=== PATIENT | male | born 1990 | race Caucasian/White ===

== ENCOUNTER 2024-11-11 16:11 | Inpatient (IN) | payer OTHER, SELFPAY ==
[2024-11-11] VITALS (10 sets, daily range): BP systolic 119–147; BP diastolic 69–91; BMI 29.4; BMI 29.6
--- NOTE | 2024-11-11 08:26 | ED.GENMED ---
History of Present Illness
General
Chief Complaint: Throat Problem
Source: patient
Exam Limitations: none
Time Seen by Provider: 11/11/24 08:10
Nursing documentation reviewed up to this point in time: agreed with
History of Present Illness
History of Present Illness:
The patient is a 34-year-old male who presents to the emergency department for evaluation of throat pain. He states symptoms initially started with an ear infection about two weeks ago. The infection was followed by facial paralysis on the right
side, suspected to be Liberty Palsy. The patient noted that the facial paralysis began a day after starting antibiotics for the ear infection. The facial symptoms led the patient to seek evaluation at another facility where an MRI and CT scan were
performed and returned normal. He has been on a prednisone taper course and augmentin since onset of symptoms.
Recently, over the past two days, the patient developed severe pain and swelling in his throat, exacerbated by swallowing, with shooting pain toward the right ear.
The patient denies fever or shortness of breath. He denies any neck pain, headache, or cough.
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
Review of Systems
Review of Systems
Allergies reviewed?: Yes
All Other Systems: ROS reviewed and negative except as documented in HPI and ROS
Phy Exam
Physical Exam
Physical Exam:
Vitals: Patient's vital signs are stable. Afebrile
General: Patient is well appearing, no acute distress
Skin: Warm and dry, no rashes or lesions
Head: Normocephalic, atraumatic
Eyes: Lagophthalmos of right eye . Sclera nonicteric. EOMs intact. No nystagmus.
Throat: Pharyngeal erythema and asymmetric swelling of right tonsillar region. Uvula deviated to the left. No tonsillar exudates. Handling oral secretions.
Neck: Swelling noted to right side neck with tenderness to palpation. No overlying erythema or warmth. No meningismus
Cardiac: Regular rate and rhythm, no murmurs.
Pulm: Normal respiratory effort, no wheezes, rales, rhonchi heard on exam
.
Abdomen: No abdominal tenderness.
Extremities: No evidence of cyanosis or edema. Strength 5/5 in bilateral upper and lower extremities. Sensation intact.
Neuro: AAOx3. Right sided facial paralysis involving forehead w/ right sided facial droop. Diminished sensation of right of face.
Psychiatric: Normal affect.
Course
Orders/Labs/Results
Orders:
Orders
11/11/24 Breakfast
IDDSI 6 - Soft & Bite Sized
At Your Request: Full Participation
Does patient need a safe tray?: No
11/11/24 08:[address] [CT Neck With Iv Contrast] Urgent
Comment:
Reason For Exam: right sided throat pain
0.9% Sodium Chloride 1000 ml [Nss] 1,000 ml IV BOLUS
Dexamethasone Sod Phosphate [Decadron] 10 mg IV NOW STA
Ketorolac [Toradol] 15 mg IV NOW STA
11/11/24 09:00
COVID-19 Antigen Urgent
Source: Nasal Swab
Complete Blood Count/With Diff Urgent
Comprehensive Metabolic Panel Urgent
Monotest Urgent
Influenza A+B Rapid Molecular Urgent
AISLINN Source: Nasal Swab
Specimen Description:
Rapid Strep Group A Urgent
AISLINN Source: Throat/Pharynx
Specimen Description:
Date Specimen was Collected: 11/11/24
Time Specimen was Collected: 08:33
Throat Culture [Throat Culture, Comprehensive] Urgent
AISLINN Source: Throat/Pharynx
Specimen Description:
Date Specimen was Collected: 11/11/24
Time Specimen was Collected: 08:34
11/11/24 11:59
ENT CONSULT Urgent
Consulting Provider: Yvrose Plascencia
Was physician already notified: Yes
11/11/24 14:51
Ampicillin/Sulbactam 3 G [Unasyn] 3 gm 0.9% Sodium Chloride 100 ml [Nss] 100 ml IV NOW
11/11/24 15:49
Admit/Transfer Patient As Directed
Co-Sign Provider:
Level of Care: Inpatient admission
Assign to:: Medical/Surgical
Physician / Group: radha
Diagnosis: peritonsillar abscess
Reason for Hospitalization: peritonsillar abscess
Expected length of stay greater than two midnights?: Yes
ELOS- Estimated Length of Stay in days: 3
I certify the patient meets the requirements for IP care: Yes
PRN Pain Medication Management As Directed
May give lesser potent ordered pain med per pt: Yes
preference::
Protocol:: Medication orders for pain may be administered in a
manner that supports deferring to patient preference
when the pt is:
- Requesting an ordered lesser potent pain medication.
Least to most potent pain medications are defined
as: acetaminophen < NSAID < tramadol < opioids
(morphine, oxycodone, hydromorphone).
- Requesting a lesser dose of the same medication IF
ORDERED.
- Requesting a less intrusive route of administration
if both routes are prescribed by the provider (PO <
IV).
11/11/24 15:50
Code Status As Directed
Resuscitation Status: Full Code
11/11/24 17:19
Acetaminophen [Tylenol] 650 mg PO Q4HPRN PRN
Bisacodyl [Dulcolax] 10 mg RECTAL [id number] PRN
Docusate W/Senna [Senokot-S] 1 tablet PO BIDPRN PRN
Polyethylene Glycol Powder [Miralax] 17 grams PO DAILYPRN PRN
Tramadol HCl [Ultram] 100 mg PO Q6HPRN PRN
11/11/24 17:19
Activity As Directed
Activity Level: As Tolerated
Vital Signs As Directed
Frequency: Per unit guidelines
DX Deep Vein Thrombosis Video Routine
11/11/24 18:00
Dexamethasone Sod Phosphate [Decadron] 4 mg IV Q6H
Enoxaparin Sodium [Lovenox] 40 mg SC QPM
11/11/24 20:00
Valacyclovir HCl [Valtrex] 1,000 mg PO BID
11/11/24 22:00
Ampicillin/Sulbactam 3 G [Unasyn] 3 gm 0.9% Sodium Chloride 100 ml [Nss] 100 ml IV Q6H
11/12/24 06:00
Complete Blood Count/No Diff IN AM
11/12/24 08:00
Pantoprazole [Protonix] 40 mg PO DAILY
11/13/24 06:00
Complete Blood Count/No Diff IN AM
11/14/24 06:00
Complete Blood Count/No Diff IN AM
Abnormal Lab Results
11/11/24
09:00
WBC 20.0 H 10^3/uL
(4.8-10.8)
Abs Immat Gran (auto) 0.1 H 10^3/uL
(0-0.05)
Absolute Neuts (auto) 14.6 H 10^3/uL
(1.4-6.5)
Absolute Monos (auto) 2.6 H 10^3/uL
(0.1-0.6)
Lymphocytes % 12.7 L %
(20.5-51.1)
Monocytes % 12.9 H %
(1.7-9.3)
BUN 21 H mg/dl
(9-20)
Glucose 100 H mg/dl
(70-99)
11/11/24 09:00
11/11/24 09:00
Vital Signs
Initial and Last Documented VS:
Initial Vital Signs
Temp Pulse Resp BP Pulse Ox
98.4 F 99 18 128/87 98
11/11/24 07:55 11/11/24 07:55 11/11/24 07:55 11/11/24 07:55 11/11/24 07:55
Last Documented Vital Signs
Temp Pulse Resp BP Pulse Ox
98.3 F 79 16 126/71 100
11/11/24 17:25 11/11/24 17:25 11/11/24 17:25 11/11/24 17:25 11/11/24 17:29
MDM/Problems Addressed
Differential Diagnosis Includes:
Not limited to: Peritonsillar abscess, viral pharyngitis, bacterial pharyngitis, mono, neck abscess, Bain's palsy, etc.
MDM/Problems Addressed:
The patient, a 34-year-old male, presented to the emergency department with severe swelling and pain on the right side of the throat, currently on oral abx and steroids treating right otitis media and Liberty palsy. Vital signs were stable, but the
patient reported difficulty swallowing secondary to pain. Physical examination revealed significant swelling in the right submandibular region, with erythema, edema, and deviation of the uvula to the left, suggestive of a peritonsillar abscess. Will
obtain basic labs, viral studies, CT neck. Will treat pain, IV decadron, IVF.
Update: Basic laboratory tests were conducted, revealing a white blood cell count of 20,000 with a left shift, no significant abnormalities in chemistry, and negative viral studies including mononucleosis and rapid strep test. Just prior to CT scan
the abscess began draining spontaneously and the patient reported expelling copious purulent fluid.
Update: CT scan showed a right peritonsillar abscess with significant edema and mild mass effect on the right oropharynx. Case discussed with ENT (Dr. Plascencia), who evaluated the patient bedside. A bedside attempt by ENT for additional drainage with
needle aspiration was unsuccessful. Given significant edema noted both on physical exam and imaging studies - patient will be admitted for continued IV steroids and IV abx. Patient accepted to hospitalist service in stable condiiton.
Chronic conditions affecting care:
N/A
Acute Exacerbation and/or Progression of Chronic Illness:
N/A
*Radiology
Radiology exam reviewed: radiology read reviewed
*Pulse Oximetry
Patient hypoxic: no (98% on RA)
*EKG
Interpreted by ED Provider?: NA
*Engine Tester Interpretation
Rate: Engine Tester- N/A
*Critical Care Note
Total Time (30-74mins, 75-104mins- exclusive of procedures): Not Applicable
Patient Management
Discussion with other providers: Hospitalist and Modeling Teacher (Case discussed w/ ENT)
ED Attending Note
-
Portions of this chart may have been created with voice recognition software.� Occasional wrong word or��sound alike� substitutions may have occurred due to the inherent limitations of voice recognition software.
Discharge Plan
Departure
Patient Disposition: Admit
Date of Disposition: 11/11/24
Time of Disposition: 14:45
Presentation/result/management discussed w/ accepting MD/DO: Hospitalist
Discharge Problem:
Peritonsillar abscess
Interventions
Interventions:
*Risk Screen - Suicide Last Done: 11/11/24 07:55
*General Assessment Last Done: 11/11/24 07:55
*Neglect/Abuse Screening Last Done: 11/11/24 07:55
*ED- Fall Risk Assessment Last Done: 11/11/24 09:28
*ED COVID-19 Vaccine History Last Done: 11/11/24 09:28
*Nursing Disposition Last Done: 11/11/24 17:15
ED-EENT Assessment Last Done: 11/11/24 11:00
ED- Pulmonary Assessment Last Done: 11/11/24 11:00
Discharge Date and Time
Discharge Date/Time: 11/11/24 17:20
[2024-11-11] MEDS: DECADRON 10 MG IV (09:20)
[2024-11-11] MEDS: NSS 1000 IV (09:20)
[2024-11-11] MEDS: TORADOL 15 MG IV (09:21)
[2024-11-11 09:29] LABS: % Basophils 0.4 % (0-2); % Eosinophils 0.5 % (0-6); % Immature Granulocytes 0.5 % (0-0.5); % Lymphocytes 12.7 % (20.5-51.1); % Monocytes 12.9 % (1.7-9.3); Absolute Basophils 0.1 10^3/uL (0-0.2); Absolute Eosinophils 0.1 10^3/uL (0-0.7); Absolute Immature Granulocytes 0.1 10^3/uL (0-0.05); Absolute Lymphocytes 2.5 10^3/uL (1.2-3.4); Absolute Monocytes 2.6 10^3/uL (0.1-0.6); Absolute Neutrophils 14.6 10^3/uL (1.4-6.5); Hematocrit 42.1 % (39.0-52.0); Hemoglobin 14.7 g/dL (13.0-18.0); Mean Corp Hgb Conc. 34.9 g/dL (33.0-37.0); Mean Corpuscular Hgb 30.8 pg (27.0-31.0); Mean Corpuscular Volume 88.3 fL (80.0-94.0); Mean Platelet Volume 9.8 fL (7.4-10.4); Nucleated Red Blood Cells % 0 % (-); Platelet Count 301 10^3/uL (130-400); Red Blood Cell Count 4.77 10^6/uL (4.70-6.10); Red Cell Dist. Width 12.5 % (11.5-14.5)
[2024-11-11 09:55] LABS: COVID-19 Antigen Negative (Negative)
[2024-11-11 10:06] LABS: ALT (SGPT) 15 U/L (0-50); AST (SGOT) 17 U/L (17-59); Albumin 4.7 g/dl (3.5-5.0); Alkaline Phosphatase 48 U/L (38-126); Blood Urea Nitrogen 21 mg/dl (9-20); Calcium 9.8 mg/dl (8.4-10.2); Carbon Dioxide 26 mmol/L (22-30); Chloride 107 mmol/L (98-107); Estimated Creatinine Clearance > 125 ml/min; Glucose 100 mg/dl (70-99); Potassium 4.1 mmol/L (3.5-5.1); Sodium 142 mmol/L (135-145); Total Bilirubin 1.3 mg/dl (0.2-1.3); Total Protein 7.7 g/dl (6.3-8.2); eGFR > 60.00
[2024-11-11 10:24] LABS: Monotest Negative (Negative)
[2024-11-11] MEDS: UNASYN IV ×2 (15:19→21:16)
--- NOTE | 2024-11-11 15:26 | HPS.HSE ---
Family Physician
-
Family Physician: Mary Holloway
Chief Complaint
-
throat pain
History of Present Illness
34-year-old male with past medical history for angioedema presented to us with throat pain. Patient was noted to have left ear infection on Friday. patient was started on Augmentin at urgent care on10/30.. he noticed left paralysis of his tongue
the following day as well as face. he was admitted at [place] [facility] on Last Friday and was started on high dose of Augmentin. his workup at [facility] was negative. he was diagnosed with [place]offe[place] palsy. meanwhile he took an appointment with ENT.
this Friday noticed discomfort in his throat and was evaluated by ENT on Friday and started him on Prednisone and Valacyclovir. his throat pain shooting to his right ear persisted which prompted him to come to the ER. The patient denies fever or
shortness of breath. He denies any neck pain, headache, or cough. Patient denies chest pain, short of breath. Patient denied abdominal pain, nausea, vomiting or diarrhea. Patient denied dysuria and hematuria.
CT with peritonsillar abscess. Patient was evaluated by ENT in the ER. Patient received a dose of Unasyn, dexamethasone, Toradol, normal saline in the ER. Admitted for further manage
Medical History
Past Medical History
Past Medical History: Reports Other
Additional Past Medical History:
Hemangioma
Past Surgical History: Reports None
Social History
Tobacco: Smoker
Alcohol: Occasional
Drug: Marijuana
Family History
Family History: Not pertinent
Allergies / Home Medications
Allergies reflects when Allergies were last updated in [employer].
Home Medications with original date entered in [employer]
Allergy/Medication List:
Allergies
Allergy/AdvReac Type Severity Reaction Status Date / Time
No Known Allergies Allergy Unverified 11/11/24 07:53
Home Medications
amoxicillin 875 mg-potassium clavulanate 125 mg tablet 1 tab PO BID 11/11/24
methylprednisolone 4 mg tablets in a dose pack 5 mg PO DAILY 11/11/24
multivitamin 1 tab PO DAILY 11/11/24
omeprazole 20 mg capsule,delayed release 20 mg PO DAILY 11/11/24
valacyclovir 1 gram tablet 1,000 mg PO BID 11/11/24
Review of Systems
-
Constitutional: Reports No Symptoms
EENT: Reports Other (Left facial slight swelling, throat and ear pain, left facial paralysis)
Respiratory: Reports No Symptoms
Cardiac: Reports No Symptoms
Abdomen/GI: Reports No Symptoms
: Reports No Symptoms
Musculoskeletal: Reports No Symptoms
Skin: Reports No Symptoms
Neurological: Reports No Symptoms
Endocrine: Reports No Symptoms
Hematologic/Lymphatic: Reports No Symptoms
Psych: Reports No Symptoms
Physical Exam
Vital Signs
Vital Signs
Temp Pulse Resp BP Pulse Ox
98.4 F 83 16 119/70 100
11/11/24 07:55 11/11/24 09:27 11/11/24 09:27 11/11/24 14:00 11/11/24 14:30
Physical Exam
General: Well Developed, Well Nourished and No Apparent Distress
HEENT: NormoCephalic, Moist mucous membranes, Atraumatic and Other (Left facial slight swelling)
Respiratory: Clear
Cardiac: S1/S2 and Regular Rhythm; No Murmur or Rub
GI: Soft, Non Tender, Non Distended and Normal Bowel Sounds; No Organomegaly
Rectal: Deferred by Provider
Musculoskeletal: No Clubbing, No Cyanosis and No Edema
Skin: No Rash
Neuro: Nonfocal/grossly intact
Laboratory Results
-
11/11/24 09:00
11/11/24 09:00
Laboratory Results
Total Bilirubin 1.3 mg/dl (0.2-1.3) 11/11/24 09:00
AST 17 U/L (17-59) 11/11/24 09:00
ALT 15 U/L (0-50) 11/11/24 09:00
Alkaline Phosphatase 48 U/L (38-126) 11/11/24 09:00
Data Reviewed
-
CT Scan: Report Reviewed by me
Lab Data: Labs Reviewed by me
Impression/Plan
-
# Peritonsillar abscess with significant edema
- WBC 20.0
- CT with impression of Right peritonsillar abscess measuring up to 1.8 cm in diameter. Surrounding edematous changes as above with mass effect against right oropharynx and right hypopharynx. 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
diameter. This could be further evaluated with follow-up thyroid ultrasound.
- Patient was evaluated by ENT recommended Decadron every 8, IV Unasyn
- Tylenol as needed for fever or pain
- [place] and COVID-negative
-IV Unasyn continue
- IV Decadron continued
- Tramadol as needed for pain
- Continue valacyclovir
# GERD
- PPI continued
# Active smoker
- Denied nicotine patch
# DVT prophylaxis
- Lovenox subcu
#CODE STATUS
- Full code
--- NOTE | 2024-11-11 16:07 | W.PN.UPDATE ---
Update Note
Progress Note Update
I saw and examined the patient.
The SENIOR [employer] ARCHITECT or PA's note was reviewed and I agree with the note.
Comment:
Patient was pleasant 34 years old who was recently treated at different facility for right-sided facial numbness and concern of right-sided ear infection came to the ER with difficulty swallowing and palpable lymph nodes under right jaw, CT scan
shows peritonsillar abscess, patient was evaluated already in the ER BMT.
Patient started on Unasyn and dexamethasone.
Patient seen and examined at bedside, denies any chest pain or shortness of breath, no abdominal pain, no nausea, no vomiting, no diarrhea or constipation.
Physical exam:
GENERAL : Patient is awake, alert, oriented x3
HEENT: Visibly swallowing right tonsillar area with palpable right submandibular lymph node
CHEST: Chest wall is nontender.
HEART: Regular rate and rhythm without murmurs.
LUNGS: Clear to auscultation bilaterally.
ABDOMEN: Soft, positive bowel sounds, nontender, no organomegaly.
RECTAL: Deferred.
SKIN: No rash, no excessive bruising, petechiae, or purpura.
NEUROLOGIC: Cranial nerves II-XII intact without motor/sensory deficit.
Assessment/plan:
Peritonsillar abscess.
Continue dexamethasone/Unasyn
Right facial numbness /facial palsy.
Continue Valtrex.
Will be discharged to complete Medrol pack
GERD.
Continue PPI
--- NOTE | 2024-11-11 16:39 | W.PN.ENT ---
Today's Communication
-
Airway monitoring, IV decadron x 24hrs, continue abx and valcyclovir, eye drops/patch for right eye
Impression / Plan
-
The patient is a 34yoM with right facial paralysis of unclear etiology. Most likely viral. Would continue steroids and antivirals. The right peritonsillar abscess seems to have drained on it's own and the patient has no trismus but has severe edema
of the uvula. Would use decadron 10mg IV Q8hrs x 3 doses for his airway. Would also continue abx, IV unasyn and monitor for improvement of the uvular/OP edema.
Subjective Data
-
The patiet is a 34yoM w right-sided Bain's Palsy on steroids, valacyclovir and augmentin who was seen two days ago in our office and then developed worsening throat pain over the past two days. He presented to the ER because of the worsening
symptoms of throat pain and swelling. He reports spitting purulent, bloody material from his mouth. He denies trouble opening his mouth. He continues to have a sore throat, but it is improved.
Objective Data
-
Vital Signs
Temp Pulse Resp BP Pulse Ox
98.4 F 83 20 119/70 100
11/11/24 07:55 11/11/24 09:27 11/11/24 15:29 11/11/24 14:00 11/11/24 14:30
Intake & Output
11/10/24 11/11/24 11/12/24
06:59 06:59 06:59
Intake:
IV fluids (Total) 1000 / 1000
NSS 1000 / 1000
Lab Results
11/11/24 09:00
11/11/24 09:00
Calcium 9.8 mg/dl (8.4-10.2) 11/11/24 09:00
Total Bilirubin 1.3 mg/dl (0.2-1.3) 11/11/24 09:00
AST 17 U/L (17-59) 11/11/24 09:00
ALT 15 U/L (0-50) 11/11/24 09:00
Alkaline Phosphatase 48 U/L (38-126) 11/11/24 09:00
Physical Exam
-
NAD, Alert and oriented, normal voice
Ears: EACs clear, no erythema or edema, no purulence, TMs intact
Neuro: Right CN VII HB 5/6, incomplete eye closure
OC/OP: No soft palate effacement, uvula is midline, severe edema of the uvula and right lateral pharyngeal wall, no trismus
Neck: No palpable LAD
Needle aspiration of any residual abscess was attempted and no purulence obtained. Full procedure in dictated c/s.
Data Reviewed
-
Radiology Results: Report Reviewed and Image Reviewed
--- NOTE | 2024-11-11 17:29 | PTCARENOTE ---
11/11- Patient transferred and oriented to unit without issue. MedSurg. Denies any current needs or pain.
[2024-11-11] MEDS: DECADRON 4 MG IV ×2 (17:56→23:18)
[2024-11-11] MEDS: VALTREX 1000 MG PO (21:02)
[2024-11-12] MEDS: UNASYN IV ×2 (04:53→10:01)
[2024-11-12] MEDS: DECADRON 4 MG IV (05:00)
[2024-11-12 07:00] VITALS: BP 119/75
[2024-11-12 08:07] LABS: Hematocrit 40.8 % (39.0-52.0); Hemoglobin 14.1 g/dL (13.0-18.0); Mean Corp Hgb Conc. 34.6 g/dL (33.0-37.0); Mean Corpuscular Hgb 30.7 pg (27.0-31.0); Mean Corpuscular Volume 88.7 fL (80.0-94.0); Mean Platelet Volume 9.9 fL (7.4-10.4); Platelet Count 311 10^3/uL (130-400); Red Cell Dist. Width 12.6 % (11.5-14.5); White Blood Cell Count 16.5 10^3/uL (4.8-10.8)
--- NOTE | 2024-11-12 08:09 | W.PN.ENT ---
Today's Communication
-
Home today
Impression / Plan
-
Abscess has drained with no reaccumulation.
No airway swelling.
Home today, on Augmentin.
He has apt for F/u with Dr. Parra
Subjective Data
-
The patient is doing much better this morning. Throat pain has resolved: There is no trismus or pain, no SOB.
With regards to ear and Bain's palsy, no ear pain and he thinks nerve function is slowly returning.
Objective Data
-
Vital Signs
Temp Pulse Resp BP Pulse Ox
98.5 F 67 18 119/75 98
11/12/24 07:00 11/12/24 07:00 11/12/24 07:00 11/12/24 07:00 11/12/24 07:00
Intake & Output
11/11/24 11/12/24 11/13/24
06:59 06:59 06:59
Intake:
Oral fluids 680 / 680
IV fluids (Total) 1040 / 1040
NSS 1000 / 1000
IV piggybacks 240 / 240
Other:
Number of approximated LARGE 2
amounts of urine
Lab Results
11/12/24 07:49
11/11/24 09:00
Calcium 9.8 mg/dl (8.4-10.2) 11/11/24 09:00
Total Bilirubin 1.3 mg/dl (0.2-1.3) 11/11/24 09:00
AST 17 U/L (17-59) 11/11/24 09:00
ALT 15 U/L (0-50) 11/11/24 09:00
Alkaline Phosphatase 48 U/L (38-126) 11/11/24 09:00
Physical Exam
-
No abscess or trismus;
no significant uvular swelling or airway compromise.
He is breathing quietly and comfortable with normal speaking voice.
[2024-11-12] MEDS: PROTONIX 40 MG PO (10:01)
[2024-11-12] MEDS: FLUSH (NSS) 1 FLUSH IV (10:06)
[2024-11-12] MEDS: VALTREX 1000 MG PO (10:06)
--- NOTE | 2024-11-12 12:14 | W.PN.HOSP.TC ---
Today's Communication/Plan
-
Discharge home today
Assessment / Plan
Assessment / Plan
Impression:
34-year-old male with past medical history for angioedema presented to us with throat pain. Patient was noted to have left ear infection on Friday. patient was started on Augmentin at urgent care on10/30.. he noticed left paralysis of his tongue
the following day as well as face. he was admitted at [place] [facility] on Last Friday and was started on high dose of Augmentin. his workup at [facility] was negative. he was diagnosed with [place] palsy. meanwhile he took an appointment with ENT.
this Friday noticed discomfort in his throat and was evaluated by ENT on Friday and started him on Prednisone and Valacyclovir. his throat pain shooting to his right ear persisted which prompted him to come to the ER. The patient denies fever or
shortness of breath. He denies any neck pain, headache, or cough. Patient denies chest pain, short of breath. Patient denied abdominal pain, nausea, vomiting or diarrhea. Patient denied dysuria and hematuria.
CT with peritonsillar abscess. Patient was evaluated by ENT in the ER. Patient received a dose of Unasyn, dexamethasone, Toradol, normal saline in the ER. Admitted for further manage
11/12
Seen again by ENT today, abscess drained and no recommendation.
Discharged home on Augmentin and Medrol pack.
Assessment/plan:
# Peritonsillar abscess with significant edema
- WBC 20.0
- CT with impression of Right peritonsillar abscess measuring up to 1.8 cm in diameter. Surrounding edematous changes as above with mass effect against right oropharynx and right hypopharynx. 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
diameter. This could be further evaluated with follow-up thyroid ultrasound.
- Patient was evaluated by ENT recommended Decadron every 8, IV Unasyn
- Tylenol as needed for fever or pain
- [place] and COVID-negative
-IV Unasyn continue
- IV Decadron continued
- Tramadol as needed for pain
- Continue valacyclovir
11/12
Discharge home today
# GERD
- PPI continued
# Active smoker
- Denied nicotine patch
# DVT prophylaxis
- Lovenox subcu
#CODE STATUS
- Full code
CODE STATUS: Full code
DVT prophylaxis: Lovenox
Diet: Regular diet
Disposition: Dc
Total time spent on today's encounter was 65 minutes which included time spent in counseling the patient/family regarding diagnosis and treatment plan as listed above, goals of care, and symptom management. Case was discussed with nursing staff,
specialists, and care coordinators/case management. All labs and imaging personally reviewed by me. Remainder the time spent in detailed review of previous records, lab data, imaging, and other medical provider documentation.
Anticipated Discharge: Today
Subjective/Interval History
-
Date of Service: November 12, 2024
Patient seen and examined at bedside, denies any chest pain or shortness of breath, no abdominal pain, no nausea, no vomiting, no diarrhea or constipation.
Objective Data
-
Labs:
Laboratory Results
11/12/24
07:49
WBC 16.5 H
Hgb 14.1
Hct 40.8
Plt Count 311
Vital Signs:
Vital Signs
Temp Pulse Resp BP Pulse Ox
98.5 F 67 18 119/75 98
11/12/24 07:00 11/12/24 07:00 11/12/24 07:00 11/12/24 07:00 11/12/24 07:00
I&O
11/11/24 11/12/24 11/13/24
06:59 06:59 06:59
Intake Total 1959 120 / 120
Balance 1959 120 / 120
Physical Exam
-
General: Well Developed, Well Nourished, No Apparent Distress and Comfortable
HEENT: Normocephalic, Atraumatic, Moist Mucous Membranes, No Ptosis, PERRLA, Nose Appears Normal and Other (Throat exam with enlarged right tonsil)
Respiratory: Clear to Auscultation and Non Labored Respirations
Cardiac: Regular Rhythm and S1/S2
Breast: Deferred by me
GI: Soft, Nontender, Nondistended and Normal Bowel Sounds
Genito-urinary: No Costovertebral Tender
Musculoskeletal: No Clubbing, No Cyanosis and No Edema
Skin: Warm
Neuro: Awake, Alert, Oriented, AO x 3 and No Motor Deficits
Psych: Calm
Data Reviewed
-
Diagnostic Radiology: Image personally visualized and interpreted and Report Reviewed by me
CT Scan: Image personally visualized and interpreted and Report Reviewed by me
Ultrasound: Image personally visualized and interpreted and Report Reviewed by me
MRI: Image personally visualized and interpreted and Report Reviewed by me
Medical Tests (Nuc Med, Echo etc): Image personally visualized and interpreted and Report Reviewed by me
Labs: Labs Reviewed by me
Old Records: Reviewed
--- NOTE | 2024-11-12 12:17 | W.DCSUMMARY ---
Discharge Summary
Discharge Data
Date of Admission: 11/11/24
Date of Discharge: 11/12/24
-
Pending Results: No
Hospital Course
Hospital course
34-year-old male with past medical history for angioedema presented to us with throat pain. Patient was noted to have left ear infection on Friday. patient was started on Augmentin at urgent care on10/30.. he noticed left paralysis of his tongue
the following day as well as face. he was admitted at [facility] on Last Friday and was started on high dose of Augmentin. his workup at [facility] was negative. he was diagnosed with [place] palsy. meanwhile he took an appointment with ENT.
this Friday noticed discomfort in his throat and was evaluated by ENT on Friday and started him on Prednisone and Valacyclovir. his throat pain shooting to his right ear persisted which prompted him to come to the ER. The patient denies fever or
shortness of breath. He denies any neck pain, headache, or cough. Patient denies chest pain, short of breath. Patient denied abdominal pain, nausea, vomiting or diarrhea. Patient denied dysuria and hematuria.
CT with peritonsillar abscess. Patient was evaluated by ENT in the ER. Patient received a dose of Unasyn, dexamethasone, Toradol, normal saline in the ER. Admitted for further manage
11/12
Seen again by ENT today, abscess drained and no recommendation.
Discharged home on Augmentin and Medrol pack.
During hospitalization patient was treated from the following
# Peritonsillar abscess with significant edema
- WBC 20.0
- CT with impression of Right peritonsillar abscess measuring up to 1.8 cm in diameter. Surrounding edematous changes as above with mass effect against right oropharynx and right hypopharynx. 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
diameter. This could be further evaluated with follow-up thyroid ultrasound.
- Patient was evaluated by ENT recommended Decadron every 8, IV Unasyn
- Tylenol as needed for fever or pain
- Parker and COVID-negative
-IV Unasyn continue
- IV Decadron continued
- Tramadol as needed for pain
- Continue valacyclovir
11/12
Discharge home today
# GERD
- PPI continued
# Active smoker
- Denied nicotine patch
# DVT prophylaxis
- Lovenox subcu
#CODE STATUS
- Full code
CODE STATUS: Full code
DVT prophylaxis: Lovenox
Diet: Regular diet
Disposition: Dc
Total time spent on today's encounter was 40 minutes which included time spent in counseling the patient/family regarding diagnosis and treatment plan as listed above, goals of care, and symptom management. Case was discussed with nursing staff,
specialists, and care coordinators/case management. All labs and imaging personally reviewed by me. Remainder the time spent in detailed review of previous records, lab data, imaging, and other medical provider documentation.
Anticipated Discharge: Today
Discharge Plan
-
Patient Disposition: Home (Routine Discharge)
Discharge Diagnosis/Procedures: Peritonsillar abscess
Diet: As tolerated and Low Residue
Additional Diets: Soft diet as tolerated
Referrals:
Mary Holloway PA [Family Provider, Family Practice]
Prescriptions:
Continued
multivitamin Tablet
1 tab PO DAILY
valacyclovir 1 gram tablet
1,000 mg PO BID
Patient Comments:
for 10 days
omeprazole 20 mg Capsule,Delayed Release(Dr/Ec)
20 mg PO DAILY
methylprednisolone 4 mg tablets,dose pack
5 mg PO DAILY
Patient Comments:
11/10 - patient took 5 mg from dose pack
amoxicillin-pot clavulanate 875-125 mg tablet
1 tab PO BID
Patient Comments:
started on 6/4 - 7 day course
Discharge Orders:
Discharge Patient (As Directed); Ordered 11/12/24
Ordered By: Vianca Naranjo
Discharge Date and Time
Print Language: EMIRATI
[2024-11-12 12:23] VITALS: BP 127/78
[2024-11-12] MEDS: DECADRON IV (12:23)
--- NOTE | 2024-11-12 13:56 | CM ---
Patient for d/c today, initial assessment completed. Patient is a 34-year-old male with past medical history for angioedema presented to us with throat pain.
Patient resides w/ spouse and their 2 kids in a 2STH, 2 steps to enter from the front, back and garage. Independent in all areas, no DME.
PCP: Mary Holloway
Pharmacy: [facility]
Plan: Home, no needs
== END 2024-11-12 13:06 | disposition home or self-care (01) | DRG 153 ==
LOC: 4 WEST ACU 16:11
PROVIDERS: Physician Assistant; Registered Nurse; ADMITTING PHYSICIAN General Practice; CONSULT PHYSICIAN Otolaryngology; EMERGENCY PHYSICIAN Emergency Medicine; FAMILY PHYSICIAN Physician Assistant
DX: J36 Peritonsillar abscess (principal); G51.0 Bell's palsy; E07.9 Disorder of thyroid, unspecified; F17.200 Nicotine dependence, unspecified, uncomplicated; H66.92 Otitis media, unspecified, left ear; Z11.52 Encounter for screening for COVID-19; K21.9 Gastro-esophageal reflux disease without esophagitis
CPT/HCPCS: 70491; 80053; 85025; 85027; 86308; 87070; 87502; 87811; 87880; 96361; 96365; 96375; 99285; Q9967

== ENCOUNTER 2025-01-20 01:05 | Emergency (ER) | payer OTHER, SELFPAY ==
[2025-01-20 01:06] VITALS: BP 132/84
[2025-01-20 01:21] VITALS: BMI 32.0
--- NOTE | 2025-01-20 01:31 | ED.GENMED ---
History of Present Illness
General
Chief Complaint: Throat Problem
Source: patient, previous radiology exam and previous hospital records (Previous overnight hospitalization November 11 to November 12 for treatment of right peritonsillar abscess requiring drainage.)
Exam Limitations: none
Time Seen by Provider: 01/20/25 01:18
Nursing documentation reviewed up to this point in time: agreed with
History of Present Illness
History of Present Illness:
This is a 34-year-old gentleman with history of GERD, chronically maintained on omeprazole. Prior history of right peritonsillar abscess as well as right facial Bain's palsy Jayne of this year requiring overnight hospitalization here November 11 to October
undergoing peritonsillar abscess drainage by ENT. He completed course of antibiotic as well as Valtrex and oral steroids. Bain's palsy symptoms resolved within a month and he had his final follow-up with ENT, Dr. Parra in mid November. Prior to
October no prior history of strep throat, peritonsillar abscess nor Bain's palsy.
He presents tonight with complaints of right posterior throat pain and a sense of mild swelling that began this afternoon. He is concerned for recurrent peritonsillar abscess. He denies earache, no cough, no fever nor chills. No difficulty
swallowing. No facial numbness nor weakness, no tongue numbness. No symptoms similar to previous episode of Bain's palsy. He has not noticed a rash.
Past History
Past History
ED Past Medical History: GERD and Other (Right-sided Bain's palsy as well as right peritonsillar abscess October 2024)
Social History
Tobacco: Non-smoker
Alcohol: None
Drug: Marijuana (Medical marijuana for insomnia)
Personal:
Living: with family
Employment: Employed
Family History
Family History: Other (Noncontributory)
Phy Exam
Physical Exam
Physical Exam:
GENERAL: 34-year-old male appears his stated age, bright and alert, pleasant, appears in no acute distress. Speech is clear. No difficulty swallowing. Afebrile.
EYE: pupils equal and reactive. anicteric
NECK: Supple, nontender, no meningismus, no significant adenopathy.
ENT: posterior pharynx is very minimally injected with minimal fullness right posterior miles-tonsillar arch but no tonsillar edema nor exudate nor ulcerations. Oral mucosa is moist. TM clear b/l, nares patent.
CARDIAC: Regular rate and rhythm. no murmur.
LUNGS: Clear breath sounds bilaterally, no acute respiratory distress, no wheezes/rales/rhonchi
ABDOMEN: Soft, nondistended, without focal tenderness
NEUROLOGICAL: Alert and oriented x3, no focal neuro deficits. No facial asymmetry. Tongue is midline. Gait is bee and steady.
SKIN: Warm and dry, normal color, skin intact. No rash.
MUSCULOSKELETAL: No C/C/E. peripheral pulses are full and equal b/l. No palpable tenderness.
PSYCH: Normal and appropriate interaction.
Sepsis
Sepsis Screening
Sepsis Assessment: Sepsis Ruled Out
Sepsis Screen
Sepsis Screen: Sepsis Ruled Out
Date: 01/20/25
Time: 01:43
Course
Orders/Labs/Results
Orders:
Orders
01/20/25 01:31
Amoxicillin 875 mg/Clav 125 mg [Augmentin 875 mg/125 mg] 1 tablet PO NOW STA
Prednisone [Deltasone] 50 mg PO NOW STA
Vital Signs
Initial and Last Documented VS:
Initial Vital Signs
Temp Pulse Resp BP Pulse Ox
98.8 F 76 18 132/84 98
01/20/25 01:06 01/20/25 01:06 01/20/25 01:06 01/20/25 01:06 01/20/25 01:06
Last Documented Vital Signs
Temp Pulse Resp BP Pulse Ox
98.8 F 76 18 132/84 98
01/20/25 01:06 01/20/25 01:06 01/20/25 01:06 01/20/25 01:06 08/21/25 01:06
MDM/Problems Addressed
Differential Diagnosis Includes:
The Differential Diagnosis includes, in no particular order and is not limited to:
1. Tonsillitis
2. Peritonsillar abscess
3. Tonsillar hypertrophy
4. Viral pharyngitis
5. Epiglottitis
6. Herpes simplex infection
7. Bacterial pharyngitis
8. Mononucleosis
9. Periodontal abscess
10. Allergic reaction
Overall exam is reassuring with very minimal global posterior pharyngeal erythema with very minimal fullness of right posterior peritonsillar arch. There is no tonsillar inflammation nor exudate nor ulcerations.
Due to history of peritonsillar abscess, concern for an early peritonsillar abscess thus will initiate a course of Augmentin as well as prednisone.
Recommend supportive measures, elevating head of bed, warm salt water gargles, soft foods.
Recommend prompt follow-up with ENT for further evaluation. Patient plans to call the ENT office today, during business hours.
As I am starting an antibiotic, no indication for rapid strep.
He is afebrile, no other associated symptoms, appears euvolemic. At this point no indication for laboratory studies nor imaging.
Return precautions discussed.
MDM/Problems Addressed:
Sore throat. Prior history of peritonsillar abscess October of this year.
No history of immunocompromise nor history of frequent/recurrent tonsillitis, sore throat.
Nothing in history nor exam to suggest recurrent Bain's palsy.
*Pulse Oximetry
SaO2: 98
Oxygen Mode of Delivery: Room air
Patient hypoxic: no
*Critical Care Note
Total Time (30-74mins, 75-104mins- exclusive of procedures): Not Applicable
ED Attending Note
-
Portions of this chart may have been created with voice recognition software.� Occasional wrong word or��sound alike� substitutions may have occurred due to the inherent limitations of voice recognition software.
Discharge Plan
Departure
Patient Disposition: Home (Routine Discharge)
Date of Disposition: 01/20/25
Time of Disposition: 01:43
Patient with high blood pressure during this ER visit?: No
Discharge Problem:
Acute sore throat, History of peritonsillar abscess drainage
Instructions: Sore Throat, Adult (DC)
Prescriptions:
New
amoxicillin-pot clavulanate 875-125 mg tablet
1 tab PO BID Qty: 14 0RF
prednisone 50 mg tablet
50 mg PO DAILY Qty: 5 0RF
No Action
multivitamin Tablet
1 tab PO DAILY
omeprazole 20 mg Capsule,Delayed Release(Dr/Ec)
20 mg PO DAILY
Referrals:
Carson Parra MD [Active, Otology] - Next open appointment
Interventions
Interventions:
*Risk Screen - Suicide Last Done: 01/20/25 01:06
*General Assessment Last Done: 01/20/25 01:21
*Neglect/Abuse Screening Last Done: 01/20/25 01:06
*ED- Fall Risk Assessment Last Done: 01/20/25 01:21
*ED COVID-19 Vaccine History Last Done: 01/20/25 01:21
ED-EENT Assessment Last Done: 01/20/25 01:21
ED- Pulmonary Assessment Last Done: 01/20/25 01:21
Discharge Date and Time
Print Language: FAROESE
[2025-01-20] MEDS: AUGMENTIN 875 MG/125 MG 1 TABLET PO (01:37)
[2025-01-20] MEDS: DELTASONE 50 MG PO (01:37)
== END 2025-01-20 01:50 | disposition home or self-care (01) ==
LOC: EMR 01:05
PROVIDERS: EMERGENCY PHYSICIAN Emergency Medicine; FAMILY PHYSICIAN Physician Assistant
DX: J02.9 Acute pharyngitis, unspecified (principal); K21.9 Gastro-esophageal reflux disease without esophagitis
CPT/HCPCS: 99283

== ENCOUNTER 2025-03-10 06:10 | Day surgery (SDC) | payer OTHER, SELFPAY ==
[2025-03-10] VITALS (10 sets, daily range): BP systolic 106–135; BP diastolic 65–83; BMI 32.8
[2025-03-10] MEDS: NORMOSOL-R/PLASMALYTE-A 1000 IV (08:58)
[2025-03-10] MEDS: DILAUDID 0.25 MG IV (12:23)
== END 2025-03-10 14:03 | disposition home or self-care (01) ==
LOC: SDS 06:10
PROVIDERS: ATTENDING PHYSICIAN Otolaryngology
DX: J03.91 Acute recurrent tonsillitis, unspecified (principal)
CPT/HCPCS: 42826; 88304